=== PATIENT | male | born 1940 | race Caucasian/White ===

== ENCOUNTER 2021-09-23 11:36 | Emergency (ER) | payer OTHER ==
[2021-09-23 12:57] LABS: HEMOGLOBIN 12.5 gm/dl (12.3-15.3); RED BLOOD COUNT 3.94 M/UL (4.00-5.10); WHITE BLOOD COUNT 21.5 K/UL (4.5-11.0)
[2021-09-23 20:08] LABS: HEMOGLOBIN 10.6 gm/dl (14.0-17.5)
== END 2021-09-23 23:28 | disposition left against medical advice (07) ==
LOC: EDSEX 11:36 → ER1 11:36
PROVIDERS: Emergency Medicine; Physician Assistant
DX: I21.4 Non-ST elevation (NSTEMI) myocardial infarction (principal); J18.9 Pneumonia, unspecified organism; R55 Syncope and collapse; K92.2 Gastrointestinal hemorrhage, unspecified; R77.8 Other specified abnormalities of plasma proteins; I25.10 Atherosclerotic heart disease of native coronary artery without angina pectoris; Z95.1 Presence of aortocoronary bypass graft; Z20.822 Contact with and (suspected) exposure to COVID-19
CPT/HCPCS: 0240U; 70450; 71045; 80053; 81001; 82272; 82550; 82553; 83605; 84484; 85014; 85018; 85025; 85610; 85730; 86140; 87040; 87081; 93005; 96374; 96375; 99283; C9113; J0456; J0696; J2405; J7030